=== PATIENT | female | born 1985 | race Asian ===

== ENCOUNTER 2016-05-10 23:15 | Emergency (ER) | payer OTHER ==
[~2016-05-10 23:15] MED LIST: GLUCOPHAGE500 MG PO; HUMALOG 100U100 U/ML SC; IBUPROFEN800 MG PO; JANUMET 1000 MG1 TAB PO; MULTIVITAMIN1 TAB PO; NOVOLIN-N1000 UNITS SC; PRENATAL1 TA2 PO
[2016-05-10 23:29] VITALS: BP 124/85
--- NOTE | 2016-05-10 23:31 | ED UPPER/LOWER EXTREMITY COMPL ---
History of Present Illness General Chief Complaint: Laceration Procedure Stated Complaint: LAC TO LEFT HAND, 1ST DIGIT Source: patient Exam Limitations: no limitations Vital Signs & Intake/Output Vital Signs & Intake/Output Vital Signs Date Time Temp Pulse Resp B/P Pulse O2 O2 Flow FiO2 Ox Delivery Rate 05/10 2329 97.2 71 20 124/85 98 Allergies Coded Allergies: NO KNOWN ALLERGIES (02/03/12) Reconcile Medications Ibuprofen 800 MG TABLET 800 MG PO Q6P PRN PAIN SCALE 4-6 Metformin Hydochloride (Glucophage) 500 MG TABLET 500 MG PO 0800,1700 DIABETES PNV95/FERROUS FUMARATE/FA ( Formula Tablet) 28 MG IRON-800 MCG TABLET 1 TAB PO DAILY prenancy (Reported) Triage Note: PER PT CUT L THUMB ON KNIFE 2 HRS AGO UNKNOWN TETANUS Triage Nurses Notes Reviewed? yes Onset: Abrupt Duration: constant Timing: single episode today Severity: moderate Severity Numbers: 5 Method of Injury: laceration : No Patient currently breastfeeds: No HPI: Patient is a 31-year-old female who presents emergency room seen at this evening while cutting onions patient accidentally cut the distal aspect of her left first digit thumb with a knife resulting in a skin avulsion in which bleeding was not controlled prior to arrival. Patient is right arm dominant. Tetanus status unknown. (ELICEO CLARK) Past History Travel History Traveled to [place] past 21 day No Medical History Any Pertinent Medical History? see below for history Neurological: NONE EENT: NONE Cardiovascular: NONE Respiratory: NONE Gastrointestinal: NONE Hepatic: NONE Renal: NONE Musculoskeletal: NONE Psychiatric: NONE Endocrine: Diabetes type 2 Tetanus Vaccine: 08/09/12 Surgical History Surgical History: non-contributory Psychosocial History What is your primary language Other Tobacco Use: Never used Family History Family History, If Any: FATHER FH: diabetes mellitus Hx Contributory? No (ELICEO CLARK) Review of Systems Review of Systems Constitutional: Reports: no symptoms. EENTM: Reports: no symptoms. Respiratory: Reports: no symptoms. Cardiovascular: Reports: no symptoms. Gastrointestinal/Abdominal: Reports: no symptoms. Genitourinary: Reports: no symptoms. Musculoskeletal: Reports: see HPI. Skin: Reports: see HPI. Neurological/Psychological: Reports: no symptoms. Hematologic/Endocrine: Reports: see HPI, bleeding. Immunological: Reports: no symptoms. All Other Systems: Reviewed and Negative (ELICEO CLARK) Physical Exam Physical Exam General Appearance: well developed/nourished, no apparent distress, alert, comfortable Neurologic/Tendon: normal sensation, normal motor functions, normal tendon functions, responds to pain, no evidence tendon injury, no pulse deficit Skin: normal color, warm/dry Comments: Well-developed well-nourished no apparent distress. HEENT: Atraumatic, extraocular motion intact Neck: Supple, no lymphadenopathy Back: Nontender Respiratory: No respiratory distress Extremities: Left first digit of hand full active range of motion full resisted range of motion Neuro: Alert and oriented x3 Psych: Mood affect normal, normal memory normal judgment. Diagram Hands Front 1) 5 mm in diameter superficial skin avulsion noted with active bleeding no exposed bone no exposed tendon mild tenderness noted (ELICEO CLARK) Progress Differential Diagnosis: arterial insufficiency, compartment syndrome, contusion, dislocation, DVT, fracture, gout, septic arthritis, sprain, tendon injury Plan of Care: Current Medications Sig/Karthik Start time Last Medication Dose Stop Time Status Admin Ibuprofen 600 MG ONCE ONE 05/10 2345 UNVr (Motrin) 05/10 2346 Tetanus/Diphtheria 0.5 ML ONCE ONE 05/10 2345 UNVr Toxoids Adsorbed 05/10 2346 (Decavac) Skin avulsion site was showing no concerns of tendon or bone injury Wound site was extensively irrigated with 300 mL of sterile water and peroxide. Xeroform and bandages were applied in which bleeding had been controlled. Patient was strongly advised to return to emergency room if signs of infection occur and she understood and will comply and patient also was advised to change dressings once a day and then leave bandage open after 4 days and she will comply. (ELICEO CLARK) Departure Departure Disposition: HOME OR SELF CARE Condition: Stable Clinical Impression Primary Impression: Avulsion of skin of finger Referrals: SHWETHA BARRON MD (PCP/Family) Referred to [facility] as new patient No Additional Instructions: As discussed keep area dry and clean as you can. Begin [id number] ibuprofen for pain and inflammation. The bandages AND XEROFORM THAT have been provided to YOU IN the emergency room, please change your dressings once a day for the following 4 days and then please leave wound dry and clean and open If you note signs of infection SUCH redness, pain, swelling, discharge return to the emergency room. In one week follow-up with her primary care doctor for recheck of symptoms. Departure Forms: Customer Survey General Discharge Information (ZABRINA TAYLOR,ELICEO) PA/[employer] Co-Sign Statement Statement: ED Attending supervision documentation- [] I saw and evaluated the patient. I have also reviewed all the pertinent lab results and diagnostic results. I agree with the findings and the plan of care as documented in the PA's/W[employer]'s documentation. [x] I have reviewed the ED Record and agree with the PA's/W[employer]'s documentation. [] Additions or exceptions (if any) to the PAs/W[employer]'s note and plan are summarized below: [] (TRICIA SALOMON,TELLY Shirley)
== END 2016-05-11 00:25 ==
LOC: ERH 23:15
DX: S61.012A Laceration without foreign body of left thumb without damage to nail, initial encounter (principal); W26.0XXA Contact with knife, initial encounter
CPT/HCPCS: 90471; 90714

== ENCOUNTER 2017-07-23 19:36 | Inpatient (IN) | payer OTHER ==
[~2017-07-23] VITALS: Ht 154.9 cm; Wt 65.8 kg
[~2017-07-23 19:36] MED LIST changes: +CARAFATE1 G1 PO; +GABAPENTIN100 M2 PO; +LISINOPRIL2.5 M1 PO; +METFORMIN HCL500 M3 PO; +PROTONIX40 M3 PO; +VITAMIN D2000 UNIT PO
[2017-07-23 20:24] LABS: ABSOLUTE BASOPHIL COUNT 0.1 /CUMM (0.0-0.2); ABSOLUTE EOSINOPHIL COUNT 0 /CUMM (0.0-0.7); ABSOLUTE LYMPH COUNT 2.1 /CUMM (1.2-3.4); BASOPHIL % 0.4 % (0.0-2.0); EOSINOPHIL % 0.2 % (0-5); GRANULOCYTE % 85.1 % (42.2-75.2); HEMATOCRIT 37.2 % (37-47); MEAN CORPUSCULAR HGB 28.1 PG (27.0-31.0); MEAN CORPUSCULAR HGB CONC 33.4 G/DL (33.0-37.0); MEAN CORPUSCULAR VOLUME 84.1 FL (81.0-99.0); MEAN PLATELET VOLUME 9.6 FL (7.4-10.4); PLATELET COUNT 248 /CUMM (130-400); RBC DISTRIBUTION WIDTH 13.6 % (11.5-14.5); RED BLOOD CELL CT 4.42 /CUMM (4.20-5.40); WHITE BLOOD CELL COUNT 21.1 /CUMM (4.8-10.8)
--- NOTE | 2017-07-23 21:25 | ED GI/GU/ABDOMINAL COMPLAINT ---
History of Present Illness General Chief Complaint: Abdominal Pain/Flank Pain Stated Complaint: BIBA FOR EVAL OF ABDOMINAL PAIN Source: patient, family Exam Limitations: no limitations Vital Signs & Intake/Output Vital Signs & Intake/Output Vital Signs Date Time Temp Pulse Resp B/P B/P Pulse O2 O2 Flow FiO2 Mean Ox Delivery Rate 07/23 2145 99.6 87 16 123/70 100 Room Air 07/23 1944 99.1 102 18 134/80 98 Room Air Allergies Coded Allergies: No Known Allergies (11/03/16) Reconcile Medications Cholecalciferol (Vitamin D3) (Vitamin D) (Unknown Strength) CAPSULE (Unknown Dose) PO DAILY SUPPLEMENT (Reported) Lisinopril 2.5 MG TABLET 1 TAB PO DAILY HTN (Reported) Metformin HCl 500 MG TABLET 1 TAB PO QAM DM (Reported) Metformin HCl 500 MG TABLET 2 TAB PO QPM DM (Reported) Pantoprazole Sodium (Protonix) 40 MG TABLET.DR 1 TAB PO DAILY gastritis Sucralfate (Carafate) 1 GRAM TABLET 1 TAB PO 4 TIMES/DAY upset stomach Triage Note: RECEIVED 32 YO FEMALE BIBA FROM WALK IN FOR DIFFUSE EPIGASTRIC AREA PAIN, STARTED ABOUT 5 PM TODAY WITH NAUSEA AND VOMITING X 2. Triage Nurses Notes Reviewed? yes ? N Is pt currently ? No Duration: constant Timing: single episode today Quality/Severity: severe, stabbing, throbbing Severity Numbers: 10 Radiation: no radiation HPI: Patient is a 32-year-old female who presents emergency room with a 4 hour onset of epigastric pain with NOW radiation to her generalized abdomen OF PAIN. Patient has had multiple episodes of nonbloody nonbilious emesis. She does report normal bowel production stool today, denies any fever chills chest pain or vaginal bleeding or discharge or dysuria hematuria. Patient is intolerant of anything by mouth since this began Patient last ate breakfast Past History Travel History Traveled to [place] past 21 day No Medical History Any Pertinent Medical History? 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 No Review of Systems Review of Systems Constitutional: Reports: no symptoms. EENTM: Reports: no symptoms. Respiratory: Reports: no symptoms. Cardiovascular: Reports: no symptoms. GI: Reports: see HPI, abdominal pain. Genitourinary: Reports: no symptoms. Musculoskeletal: Reports: no symptoms. Skin: Reports: no symptoms. Neurological/Psychological: Reports: no symptoms. Hematologic/Endocrine: Reports: no symptoms. Immunologic/Allergic: Reports: no symptoms. All Other Systems: Reviewed and Negative Physical Exam Physical Exam General Appearance: moderate distress Head: atraumatic Eyes: Bilateral: normal appearance. Ears, Nose, Throat, Mouth: moist mucous membrane Neck: normal inspection Respiratory: normal breath sounds, chest non-tender, no respiratory distress Cardiovascular: regular rate/rhythm Gastrointestinal: normal bowel sounds, soft, RLQ PAIN NO REBOUND Extremities: normal range of motion Neurologic/Psych: no motor/sensory deficits, awake Skin: intact, normal color, warm/dry Core Measures ACS in differential dx? No Sepsis Present: No Sepsis Focused Exam Completed? No Progress Differential Diagnosis: AAA, AMI, appendicitis, biliary colic, bowel obstruction , colon cancer, cholecystitis, diverticulitis, ectopic , endometritis, esophageal varices, gastritis, hepatitis, hernia, hemorrhoids, ischemic bowel, inflamm bowel dis, intrauterine , kidney stone, Fabiola-Shravan tear, ovarian cyst, ovarian torsion, pancreatitis, PID/cervicitis, peptic ulcer, PUD/ GERD, perforated viscous, SBO, threatened AB, UTI/pyelo Plan of Care: Orders Procedure Date/time Status Nothing by Mouth 07/24 B Active EKG 07/24 2303 Active Add-on Test (ER Only) 07/23 2225 Active TYPE & SCREEN (NOT X-MATCH) 07/23 222 Active Add-on Test (ER Only) 07/24 2131 Active Add-on Test (ER Only) 07/23 2002 Active PARTIAL THROMBOPLASTIN TIME 07/23 1957 Complete PROTHROMBIN TIME 07/23 1957 Complete LIPASE 07/23 1957 Complete HUMAN BETA HCG SCREEN 07/23 1957 Complete AMYLASE 07/23 1957 Complete URINALYSIS 07/23 1938 Complete COMPREHENSIVE METABOLIC PANEL 07/23 1938 Complete CBC WITHOUT DIFFERENTIAL 07/23 1938 Complete Laboratory Tests 07/23/17 2142: Urinalysis LIGHT H, Urine Color YEL, Urine Clarity CLEAR, Urine pH 7.5, Ur Specific [place] 1.020, Urine Protein TRACE H, Urine Ketones >=80, Urine Nitrite NEG, Urine Bilirubin NEG, Urine Urobilinogen 0.2, Ur Leukocyte Esterase NEG, Ur Microscopic SEDIMENT EXAMINED, Urine RBC 1-3, Urine WBC 1-3 H, Ur Epithelial Cells FEW, Urine Bacteria FEW H, Urine Mucus FEW, Urine Hemoglobin NEG, Urine Glucose NEG 07/23/171957: Anion Gap 14, Estimated GFR > 60, BUN/Creatinine Ratio 18.3, Glucose 162 H, Calcium 9.9, Total Bilirubin 1.0, AST 37 H, ALT 64 H, Alkaline Phosphatase 89, Total Protein 7.6, Albumin 4.4, Globulin 3.2, Albumin/Globulin Ratio 1.4, Amylase 57, Lipase 55, Total Beta HCG NEGATIVE, PT 12.3, INR 1.13, APTT 29, CBC w Diff MAN DIFF ORDERED, RBC 4.42, MCV 84.1, MCH 28.1, MCHC 33.4, RDW 13.6, MPV 9.6, Gran % 85.1 H, Lymphocytes % 9.7 L, Monocytes % 4.6, Eosinophils % 0.2, Basophils % 0.4, Absolute Granulocytes 18.0 H, Segmented Neutrophils 71, Band Neutrophils 14 H, Absolute Lymphocytes 2.1, Lymphocytes 10 L, Monocytes 5, Absolute Monocytes 1.0 H, Absolute Eosinophils 0, Absolute Basophils 0.1, Platelet Estimate ADEQUATE Patient on initial presentation was noted to be in distress and has concerns of appendicitis. CT scan confirms acute appendicitis discussed patient with Dr. Orozco patient is nothing by mouth Unasyn was administered I discussed results of appendicitis the patient was aware Patient did have improvement of pain Discussed results with Dr. Orozco in which he will perform surgical appendectomy tonight Discussed this with patient was aware Diagnostic Imaging: Viewed by Me: CT Scan. Radiology Impression: acute abnormality Initial ED EKG: none Comments: PATIENT: DIANNA KRUSE PRESENT AGE: 32 PATIENT ACCOUNT NO: [id number] : 85 LOCATION: [facility] ORDERING PHYSICIAN: uBll TAYLOR SERVICE DATE: 07/23/17 EXAM TYPE: CAT - CT ABD & PELVIS W IV CONTRAST EXAMINATION: CT ABDOMEN AND PELVIS WITH CONTRAST CLINICAL INFORMATION: Abdominal pain COMPARISON: 02/13/2017 TECHNIQUE: Multidetector volumetric imaging was performed of the abdomen and pelvis following IV administration of 95 mL of Optiray 320 intravenous contrast. Sagittal and coronal reformatted images were obtained on the technologist's workstation. DLP: 257 mGy-cm FINDINGS: LUNG BASES: The visualized lung bases are unremarkable. LIVER, GALLBLADDER, AND BILIARY TREE: Diffuse fatty infiltration of the liver. The gallbladder is unremarkable with no evidence of radiopaque gallstones, gallbladder wall thickening, or obvious pericholecystic inflammatory changes. PANCREAS: Unremarkable. SPLEEN: Unremarkable. ADRENAL GLANDS: Unremarkable. KIDNEYS AND URETERS: The kidneys are normal in size, shape, and attenuation. No hydronephrosis, hydroureter, or calculi seen. No perinephric stranding. BLADDER: Unremarkable. GASTROINTESTINAL TRACT: The appendix is enlarged with enhancement of the wall and mild inflammatory stranding located in the deep right pelvis compatible with acute appendicitis. No abscess. Small and large bowel loops are otherwise unremarkable. ABDOMINAL WALL: No significant hernia is appreciated. LYMPH NODES: Normal. VASCULAR: Unremarkable. PELVIC VISCERA: Unremarkable. OSSEOUS STRUCTURES: Sclerosis along the sacroiliac joints likely represents osteitis condenses ilii. IMPRESSION: Acute appendicitis, located in the deep right pelvis adjacent to the uterus and right adnexa. No abscess. Diffuse fatty infiltration of the liver. DICTATED BY: Sukhdev Mcgregor MD DATE/TIME DICTATED:07/23/172204 MAP COLORER:SARITA DATE/TIME TRANSCRIBED:07/23/172204 Departure Departure Disposition: STILL A PATIENT Condition: Stable Clinical Impression Primary Impression: Appendicitis Referrals: Eda Veras MD (PCP/Family) Departure Forms: Customer Survey General Discharge Information OR/GI Note Spoke With: Ernesto SALOMON,Buddy Paige Treatment Decision: DIANNA KRUSE requires urgent operative management or an emergent procedure that cannot be performed in the Emergency Room setting. Transport To: [facility] Critical Care Note Critical Care Note Critical Care Time: 30-74 min Transport To: [facility] Critical Care Note Critical Care Note Critical Care Time: 30-74 min
--- NOTE | 2017-07-23 22:14 | CT SCAN REPORT ---
EXAMINATION: CT ABDOMEN AND PELVIS WITH CONTRAST CLINICAL INFORMATION: Abdominal pain COMPARISON: 02/13/2017 TECHNIQUE: Multidetector volumetric imaging was performed of the abdomen and pelvis following IV administration of 95 mL of Optiray 320 intravenous contrast. Sagittal and coronal reformatted images were obtained on the technologist's workstation. DLP: 257 mGy-cm FINDINGS: LUNG BASES: The visualized lung bases are unremarkable. LIVER, GALLBLADDER, AND BILIARY TREE: Diffuse fatty infiltration of the liver. The gallbladder is unremarkable with no evidence of radiopaque gallstones, gallbladder wall thickening, or obvious pericholecystic inflammatory changes. PANCREAS: Unremarkable. SPLEEN: Unremarkable. ADRENAL GLANDS: Unremarkable. KIDNEYS AND URETERS: The kidneys are normal in size, shape, and attenuation. No hydronephrosis, hydroureter, or calculi seen. No perinephric stranding. BLADDER: Unremarkable. GASTROINTESTINAL TRACT: The appendix is enlarged with enhancement of the wall and mild inflammatory stranding located in the deep right pelvis compatible with acute appendicitis. No abscess. Small and large bowel loops are otherwise unremarkable. ABDOMINAL WALL: No significant hernia is appreciated. LYMPH NODES: Normal. VASCULAR: Unremarkable. PELVIC VISCERA: Unremarkable. OSSEOUS STRUCTURES: Sclerosis along the sacroiliac joints likely represents osteitis condenses ilii. IMPRESSION: Acute appendicitis, located in the deep right pelvis adjacent to the uterus and right adnexa. No abscess. Diffuse fatty infiltration of the liver.
--- NOTE | 2017-07-23 22:42 | History & Physical ---
Lupe Flores 07/23/17 0675: General Information and HPI MD Statement: I have seen and personally examined DIANNA KRUSE and documented this H& P. The patient is a 32 year old F who presented with a patient stated chief complaint of [Abdominal pain]. Source of Information: patient Exam Limitations: no limitations History of Present Illness: Pt presents to ED with abdominal pain that started around 5pm today. Says she has pain in her upper abdomen that is constant and also in her suprapubic area when she flexes her hips. States that she last ate at 3pm and then vomited shortly after, non bloody. Denies diarrhea. Denies CP/SOB/BEY Allergies/Medications Allergies: Coded Allergies: No Known Allergies (11/03/16) Home Med list Cholecalciferol (Vitamin D3) (Vitamin D) (Unknown Strength) CAPSULE (Unknown Dose) PO DAILY SUPPLEMENT (Reported) Lisinopril 2.5 MG TABLET 1 TAB PO DAILY HTN (Reported) Metformin HCl 500 MG TABLET 1 TAB PO QAM DM (Reported) Metformin HCl 500 MG TABLET 2 TAB PO QPM DM (Reported) Pantoprazole Sodium (Protonix) 40 MG TABLET.DR 1 TAB PO DAILY gastritis Sucralfate (Carafate) 1 GRAM TABLET 1 TAB PO 4 TIMES/DAY upset stomach Compliance With Home Meds: GOOD Past History Travel History Traveled to [place] past 21 day No Medical History Neurological: NEUROPATHY EENT: NONE Cardiovascular: NONE Respiratory: NONE Gastrointestinal: NONE Hepatic: NONE Renal: NONE Musculoskeletal: NONE Psychiatric: NONE Endocrine: Diabetes type 2 Blood Disorders: NONE Cancer(s): 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 Respiratory: Denies: cough, short of breath. GI: Reports: abdominal pain, nausea, vomiting. Denies: constipation, diarrhea, bloody stool. Genitourinary: Denies: dysuria, hematuria. Musculoskeletal: Reports: back pain. Date of LMP: 07/16/17 Exam & Diagnostic Data Last 24 Hrs of Vital Signs/I&O Vital Signs Date Time Temp Pulse Resp B/P B/P Pulse O2 O2 Flow FiO2 Mean Ox Delivery Rate 07/23 2145 99.6 87 16 123/70 100 Room Air 07/23 1944 99.1 102 18 134/80 98 Room Air Physical Exam General Appearance Alert, Cooperative, No Acute Distress Skin Temp/Moisture Exam: Warm/Dry HEENT Atraumatic, EOMI, Mucous Membr. moist/pink Cardiovascular Regular Rate, Normal S1, Normal S2 Lungs Clear to Auscultation, Normal Air Movement Abdomen Normal Bowel Sounds (obese), Soft (tender to palp in lower abd), tender to palpation in lower abdomen, rebound tenderness Extremities No Edema, No Tenderness/Swelling Last 24 Hrs of Labs/Yang: Laboratory Tests 07/23/172141: Urinalysis LIGHT H, Urine Color YEL, Urine Clarity CLEAR, Urine pH 7.5, Ur Specific [place] 1.020, Urine Protein TRACE H, Urine Ketones >=80, Urine Nitrite NEG, Urine Bilirubin NEG, Urine Urobilinogen 0.2, Ur Leukocyte Esterase NEG, Ur Microscopic SEDIMENT EXAMINED, Urine RBC 1-3, Urine WBC 1-3 H, Ur Epithelial Cells FEW, Urine Bacteria FEW H, Urine Mucus FEW, Urine Hemoglobin NEG, Urine Glucose NEG 07/23/171957: Anion Gap 14, Estimated GFR > 60, BUN/Creatinine Ratio 18.3, Glucose 162 H, Calcium 9.9, Total Bilirubin 1.0, AST 37 H, ALT 64 H, Alkaline Phosphatase 89, Total Protein 7.6, Albumin 4.4, Globulin 3.2, Albumin/Globulin Ratio 1.4, Amylase 57, Lipase 55, Total Beta HCG NEGATIVE, PT Pending, INR Pending, APTT Pending, CBC w Diff MAN DIFF ORDERED, RBC 4.42, MCV 84.1, MCH 28.1, MCHC 33.4, RDW 13.6, MPV 9.6, Gran % 85.1 H, Lymphocytes % 9.7 L, Monocytes % 4.6, Eosinophils % 0.2, Basophils % 0.4, Absolute Granulocytes 18.0 H, Segmented Neutrophils 71, Band Neutrophils 14 H, Absolute Lymphocytes 2.1, Lymphocytes 10 L, Monocytes 5, Absolute Monocytes 1.0 H, Absolute Eosinophils 0, Absolute Basophils 0.1, Platelet Estimate ADEQUATE Diagnostic Data Other Results SERVICE DATE: 07/23/17-2130 EXAM TYPE: CAT - CT ABD & PELVIS W IV CONTRAST EXAMINATION: CT ABDOMEN AND PELVIS WITH CONTRAST CLINICAL INFORMATION: Abdominal pain COMPARISON: 02/13/2017 TECHNIQUE: Multidetector volumetric imaging was performed of the abdomen and pelvis following IV administration of 95 mL of Optiray 320 intravenous contrast. Sagittal and coronal reformatted images were obtained on the technologist's workstation. DLP: 257 mGy-cm FINDINGS: LUNG BASES: The visualized lung bases are unremarkable. LIVER, GALLBLADDER, AND BILIARY TREE: Diffuse fatty infiltration of the liver. The gallbladder is unremarkable with no evidence of radiopaque gallstones, gallbladder wall thickening, or obvious pericholecystic inflammatory changes. PANCREAS: Unremarkable. SPLEEN: Unremarkable. ADRENAL GLANDS: Unremarkable. KIDNEYS AND URETERS: The kidneys are normal in size, shape, and attenuation. No hydronephrosis, hydroureter, or calculi seen. No perinephric stranding. BLADDER: Unremarkable. GASTROINTESTINAL TRACT: The appendix is enlarged with enhancement of the wall and mild inflammatory stranding located in the deep right pelvis compatible with acute appendicitis. No abscess. Small and large bowel loops are otherwise unremarkable. ABDOMINAL WALL: No significant hernia is appreciated. LYMPH NODES: Normal. VASCULAR: Unremarkable. PELVIC VISCERA: Unremarkable. OSSEOUS STRUCTURES: Sclerosis along the sacroiliac joints likely represents osteitis condenses ilii. IMPRESSION: Acute appendicitis, located in the deep right pelvis adjacent to the uterus and right adnexa. No abscess. Diffuse fatty infiltration of the liver. DICTATED BY: Sukhdev Mcgregor MD DATE/TIME DICTATED:07/23/172204 CANS VACUUM TESTER:SARITA DATE/TIME TRANSCRIBED:07/23/172204 Assessment/Plan Assessment: 32yo diabetic F with acute appendicitis by CT. [facility] O[facility] laproscopic appendectomy. NPO IV ABX- Unasyn IVF IV pain management [place] Dr Orozco to see and examine the patient As Ranked By This Provider Problem List: 1. Appendicitis Core Measures/Misc (01/25) Acute Coronary Syndrome ACS Diagnosis: No Congestive Heart Failure Congestive Heart Failure Diagnosis No Cerebrovascular Accident CVA/TIA Diagnosis: No VTE (View Protocol) VTE Risk Factors Acute Medical Illness No Mechanical VTE Prophylaxis d/t N/A MechProphylax Ordered No VTE Pharm Prophylaxis d/t NA PharmProphylax ordered Sepsis (View protocol) Sepsis Present: No Buddy Orozco MD 07/24/17 0029: Attending MD Review Statement Attending Statement Attending MD Statement: examined this patient, discuss w/resident/PA/POINT OF CARE SPECIALIST, reviewed images Attending Assessment/Plan: 32-year-old woman with diabetes mellitus presents with progressive right lower quadrant abdominal pain over the past 8 hours. It was associated with nausea and vomiting. Physical examination reveals suprapubic and right lower quadrant involuntary guarding. White blood cell count is 21,[address] scan confirms the diagnosis of acute appendicitis. Images were personally reviewed, showing dilated and inflamed appendix extending into the right-sided pelvis. There is no evidence of perforation clinically or radiographically. Plan will be to give her broad-spectrum antibiotics and prompt laparoscopic appendectomy. Patient is informed the risk of the operation including bleeding and recurrent infections. She agrees to proceed.
[2017-07-23 23:00] LABS: PT 12.3 SEC (9.4-12.5); PTT 29 SEC (25-37)
--- NOTE | 2017-07-24 00:34 | Operative Report ---
Operative/Inv Procedure Report Surgery Date: 07/24/17 Name of Procedure: Laparoscopic appendectomy Pre-Operative Diagnosis: Acute appendicitis Post-Operative Diagnosis: Same Estimated Blood Loss: scant Surgeon/Croze Cutter: Buddy Orozco M.D./Lupe TAYLOR Anesthesia: general endotracheal tube Specimens: Appendix Operative Indication: See preoperative H&P Operative/Procedure Note Note: After consent patient is brought to the operating room and laid supine. General anesthesia was obtained his abdomen was prepped and draped. Skin above the umbilicus was after local anesthesia a curvilinear incision made sharply. We dissected through subcutaneous tissues tissues bluntly and identified the fascia. It was grasped with Suleiman's and a fasciotomy created sharply. The peritoneum was entered sharply and a blunt Velasco port was placed. Pneumoperitoneum was achieved. 2, 5 mm ports were placed in the suprapubic region and left lower quadrant, after local anesthesia was instilled and under direct vision the camera. Patient placed in Trendelenburg and rotated towards the left. The abdomen was explored. There was trace turbid fluid in the peritoneal cavity. The appendix was identified in the right lower quadrant dipping down into the pelvis. It was grasped at its base with a Nj and peeled off the pelvic sidewall laterally. A window in the mesentery was developed with a [place] dissector. The mesentery and base of the appendix were then sequentially divided with Endo ALLYSON Aguilar load. Appendix placed in Endo Catch bag and cinched up. The right lower quadrant and pelvis were then irrigated with normal saline. Hemostasis was adequate. Ports then removed and appendix delivered and passed off the field. The fascia was closed 0 Vicryl suture. Skin incisions closed with 4-0 Vicryl. Steri-Strips and sterile dressing applied. Sponge and needle counts are correct Findings: Suppurative appendicitis CC: Eda SALOMON,Eda
[2017-07-24 03:00] VITALS: BP 134/68
--- NOTE | 2017-07-24 07:26 | PN- General Surgery ---
See Addendum Subjective Subjective: POST-OP NOTE No complaints. Tolerating clears. Eager to try food for breakfast. Denies nausea. No dizziness. No shortness of breath. Voided post-op without difficulty. Objective Vital Signs and I&Os Vital Signs Date Time Temp Pulse Resp B/P B/P Pulse O2 O2 Flow FiO2 Mean Ox Delivery Rate 07/24 0300 95 Room Air 07/24 0300 98.0 83 20 134/68 95 Room Air 07/23 2317 99.0 108 18 123/67 100 Room Air 07/23 2146 99.6 87 16 123/70 100 Room Air 07/23 1945 99.1 102 18 134/80 98 Room Air Intake & Output 07/24 0800 07/24 0000 07/23 1600 07/23 0800 07/23 0000 07/22 1600 Intake Total 770 1000 Output Total Balance 770 1000 Intake, IV 650 1000 Intake, Oral 120 0 Patient 145 lb Weight Weight Estimated Measurement Method Physical Exam: General - alert & oriented x 3. comfortable. no acute distress. Lungs - clear bilaterally. no w/r/r. Cardiac - s1s2. reg. Abdomen - soft. dressings c/d/i. no drains. expected trudy-incisional tenderness. Extremities - warm bilaterally. no c/c/e. calves soft and nontender b/l. Current Medications: Current Medications Sig/Karthik Start time Last Medication Dose Route Stop Time Status Admin Ampicillin Sodium/ 0 .STK-MED ONE 07/23 2232 DC Sulbactam Sodium .ROUTE Ampicillin Sodium/ 1,500 MG ONCE ONE 07/23 2229 DC 07/23 Sulbactam Sodium IV 07/23 2259 2238 Sodium Chloride 100 ML Heparin Sodium 5,000 UNIT Q8 07/24 0600 07/24 (Porcine) SC 0627 Ketorolac 30 MG Q6 07/24 0730 UNVr Tromethamine IV Lactated Ringer's 1,000 ML .Q10H 07/23 2315 DC 07/24 IV 07/24 1914 0135 Lisinopril 2.5 MG DAILY 07/24 1000 AC PO Metformin HCl 1,000 MG QPM 07/24 2200 AC PO Metformin HCl 500 MG QAM 07/24 1000 AC PO Morphine Sulfate 2 MG Q4P PRN 07/24 0130 AC 07/24 IV 0145 Morphine Sulfate 2 MG Q4P PRN 07/23 2314 DC IV Morphine Sulfate 0 .STK-MED ONE 07/23 2146 DC .ROUTE Morphine Sulfate 4 MG ONCE ONE 07/23 2144 DC 07/23 IV 07/23 Omeprazole 40 MG DAILY AC 07/24 0700 AC 07/24 PO 0626 Ondansetron HCl 4 MG Q6P PRN 07/23 2359 AC IV Ondansetron HCl 0 .STK-MED ONE 07/23 2146 DC .ROUTE Ondansetron HCl 4 MG ONCE ONE 07/23 2144 DC 07/23 IV 07/23 Oxycodone/ 2 TAB Q4H PRN 07/23 2330 AC Acetaminophen PO Oxycodone/ 1 TAB Q4P PRN 07/23 2314 AC Acetaminophen PO Sodium Chloride 1,000 ML BOLUS ONE 07/23 2144 DC 07/23 IV 07/23 Results Last 48 Hours of Labs: Laboratory Tests 07/23 Chemistry Sodium (137 - 145 mmol/L) 136 L Potassium (3.5 - 5.1 mmol/L) 4.1 Chloride (98 - 107 mmol/L) 98 Carbon Dioxide (22 - 30 mmol/L) 24 Anion Gap (5 - 16) 14 BUN (7 - 17 mg/dL) 11 Creatinine (0.5 - 1.0 mg/dL) 0.6 Estimated GFR (>60 ml/min) > 60 BUN/Creatinine Ratio (7 - 25 %) 18.3 Glucose (65 - 99 mg/dL) 162 H Calcium (8.4 - 10.2 mg/dL) 9.9 Total Bilirubin (0.2 - 1.3 mg/dL) 1.0 AST (14 - 36 U/L) 37 H ALT (9 - 52 U/L) 64 H Alkaline Phosphatase (<127 U/L) 89 Total Protein (6.3 - 8.2 g/dL) 7.6 Albumin (3.5 - 5.0 g/dL) 4.4 Globulin (1.9 - 4.2 gm/dL) 3.2 Albumin/Globulin Ratio (1.1 - 2.2 %) 1.4 Amylase (30 - 110 U/L) 57 Lipase (23 - 300 U/L) 55 Total Beta HCG (NEGATIVE) NEGATIVE Coagulation PT (9.4 - 12.5 SEC) 12.3 INR (0.90 - 1.19) 1.13 APTT (25 - 37 SEC) 29 Hematology CBC w Diff MAN DIFF ORDERED WBC (4.8 - 10.8 /CUMM) 21.1 H RBC (4.20 - 5.40 /CUMM) 4.42 Hgb (12.0 - 16.0 G/DL) 12.4 Hct (37 - 47 %) 37.2 MCV (81.0 - 99.0 FL) 84.1 MCH (27.0 - 31.0 PG) 28.1 MCHC (33.0 - 37.0 G/DL) 33.4 RDW (11.5 - 14.5 %) 13.6 Plt Count (130 - 400 /CUMM) 248 MPV (7.4 - 10.4 FL) 9.6 Gran % (42.2 - 75.2 %) 85.1 H Lymphocytes % (20.5 - 51.1 %) 9.7 L Monocytes % (1.7 - 9.3 %) 4.6 Eosinophils % (0 - 5 %) 0.2 Basophils % (0.0 - 2.0 %) 0.4 Absolute Granulocytes (1.4 - 6.5 /CUMM) 18.0 H Segmented Neutrophils (42.2 - 75.2 %) 71 Band Neutrophils (0.0 - 5.0 %) 14 H Absolute Lymphocytes (1.2 - 3.4 /CUMM) 2.1 Lymphocytes (20.5 - 51.1 %) 10 L Monocytes (1.7 - 9.3 %) 5 Absolute Monocytes (0.10 - 0.60 /CUMM) 1.0 H Absolute Eosinophils (0.0 - 0.7 /CUMM) 0 Absolute Basophils (0.0 - 0.2 /CUMM) 0.1 Platelet Estimate (ADEQUATE) ADEQUATE Urines Urinalysis LIGHT H Urine Color (YEL,AMB,STR) YEL Urine Clarity (CLEAR) CLEAR Urine pH (5.0 - 8.0) 7.5 Ur Specific [place] (1.001 - 1.035) 1.020 Urine Protein (NEG,<30 MG/DL) TRACE H Urine Ketones (NEG) >=80 Urine Nitrite (NEG) NEG Urine Bilirubin (NEG) NEG Urine Urobilinogen (0.1 - 1.0 EU/dl) 0.2 Ur Leukocyte Esterase (NEG) NEG Ur Microscopic SEDIMENT EXAMINED Urine RBC (0 - 5 /HPF) 1-3 Urine WBC (0 - 2 /HPF) 1-3 H Ur Epithelial Cells (NONE,FEW) FEW Urine Bacteria (NEG/NONE) FEW H Urine Mucus (FEW,NONE) FEW Urine Hemoglobin (NEG) NEG Urine Glucose (N MG/DL) NEG Assessment/Plan Assessment/Plan This 32 year old female with hx dm now POD#0 s/p laparoscopic appendectomy for acute appendicitis tolerating clears. d/c iv fluids. advance to diabetic diet home meds ordered hep sc - dvt ppx pain medication as ordered. toradol added likely d/c home later if tolerating diet will d/w Core Measures Venous Thromboembolism VTE Risk Factors Acute Medical Illness No Mechanical VTE Prophylaxis d/t N/A MechProphylax Ordered No VTE Pharm Prophylaxis d/t NA PharmProphylax ordered
--- NOTE | 2017-07-24 07:40 | Patient Discharge Instructions ---
Discharge Instructions General Discharge Information You were seen/treated for: Acute appendicitis You had these procedures: Laparoscopic appendectomy Watch for these problems: fever>101.3, increased pain, redness/swelling/drainage No bath, but you may shower: Yes Other wound care: ok to shower. no bathing/pools. ok to remove bandaids. leave white steri strips in place. keep incisions clean & dry. Diet Continue normal diet: Yes Recommended Diet: Diabetic Activity Full Activity/No Limits: No Activity Self Limited: Yes Pounds, do NOT lift more than: 10 Other activity limits: no heavy lifting. no strenuous activity. Acute Coronary Syndrome Inclusion Criteria At DC or during hospital stay patient has or had the following: ACS DIAGNOSIS No Discharge Core Measures Meds if any: Prescribed or Continued at Discharge Meds if any: NOT Prescribed or Continued at Discharge Congestive Heart Failure Inclusion Criteria At DC or during hospital stay patient has or had the following: CHF DIAGNOSIS No Discharge Core Measures Meds if any: Prescribed or Continued at Discharge Meds if any: NOT Prescribed or Continued at Discharge Cerebrovascular accident Inclusion Criteria At DC or during hospital stay patient has or had the following: CVA/TIA Diagnosis No Discharge Core Measures Meds if any: Prescribed or Continued at Discharge Meds if any: NOT Prescribed or Continued at Discharge Venous thromboembolism Inclusion Criteria VTE Diagnosis No VTE Type NONE VTE Confirmed by (Test) NONE Discharge Core Measures - Per Current guidelines, there needs to be overlap - treatment for the first 5 days of Warfarin therapy. - If discharged on Warfarin prior to 5 days of - overlap therapy, the patient will need to be - assessed for post discharge needs including - *Post discharge parental anticoagulation - *Warfarin and/or parental anticoagulation education - *Follow up date to check INR post discharge At least 5 days overlap therapy as Inpatient No Meds if any: Prescribed or Continued at Discharge Note: Overlap Therapy is Warfarin and Anticoagulant Meds if any: NOT Prescribed or Continued at Discharge
[2017-07-24] MEDS ORDERED: PERCOCET 5-3251 EACH PO (07:42)
[2017-07-24 08:00] VITALS: BP 122/80
[2017-07-24 10:30] VITALS: BP 122/80
== END 2017-07-24 15:15 | DRG 234 ==
LOC: ERH 19:36 → CRI 07-24 00:45 → ENTRNSPT 07-24 15:01 → CRI 07-24 15:15 → EDTRNSPTSTS 07-24 15:16 → EDTRNSPT 07-24 15:16 → CMPTRNSPT 07-24 15:23
PROVIDERS: Physician Assistant Medical
PROC: 0DTJ4ZZ Resection of Appendix, Percutaneous Endoscopic Approach (ICD-10-PCS; principal; 2017-07-24)
DX: K35.80 Unspecified acute appendicitis (principal); E11.42 Type 2 diabetes mellitus with diabetic polyneuropathy; Z79.84 Long term (current) use of oral hypoglycemic drugs
CPT/HCPCS: CCU; 74177; 81001; 81025; 93005; 93010; 96361; 96374; 96375; 99291; J1644; J1885; J2405